=== PATIENT | female | born 1945 | race Caucasian/White ===

== ENCOUNTER → 2021-06-30 | Outpatient (CLI) | payer BC ==
[~2021-06-30] VITALS: Ht 165.1 cm; Wt 68.5 kg
[2021-06-30] VITALS (7 sets, daily range): BP systolic 107–132; BP diastolic 67–80
[~2021-06-30] MED LIST: AMBIEN 10 MG TA10 MG PO; ARIXTRA SC; ASPIRIN325 PO; CARVEDILOL3.125 MG PO; COLACE100 MG PO; COZAAR 50 MG TA50 M2 PO; CRANBERRY400 MG PO; DITROPAN XL10 M1 PO; ENTRESTO 49 MG1 EACH PO; FOSAMAX 70 MG T70 M1 PO; HYDROCODONE-AP1 EA10 PO; K-DUR10 MEQ PO; KEFLEX500 MG PO; LASIX 40 MG TAB40 MG PO; MOBIC15 MG PO; NEURONTIN 300300 M1 PO; OXYIR5 MG PO; PERCOCET 5-3251 EACH PO; PULMICORT FLE180 MCG INH; PULMICORT FLE180 MCG PO; SKELAXIN 800 M800 M1 PO; SLOW RELEASE IRON PO; SPIRONOLACTONE25 M1 PO; STIOLTO RESPIMAT4 GM INH; THERAGRAN-M PR1 EAC1 PO; UNISOM50 MG PO; ZYRTEC10 M2 PO; ZYRTEC10 M5 PO
[2021-06-30 08:30] LABS: HEMATOCRIT 32.2 % (37.0-47.0); HEMOGLOBIN 10.2 gm/dL (12.0-15.0); MCH 23.2 pg (26.0-34.0); MCHC 31.7 g/dL (28.0-37.0); MCV 73.4 fL (80.0-100.0); MPV 8.5 fl. (7.2-11.1); RBC 4.39 mil/uL (4.20-5.00); WBC 6.3 thou/uL (4.0-11.0)
[2021-06-30 08:44] LABS: APTT 26.5 Seconds (25.0-31.3); INR 1.2; PROTIME 12.2 Seconds (9.20-11.50)
[2021-06-30 08:46] LABS: ANION GAP 8 mmol/L (7-16); BUN 27 mg/dL (7-18); CALCIUM 8.4 mg/dL (8.5-10.1); CHLORIDE 96 mmol/L (98-107); CO2 30 mmol/L (21-32); CREATININE 1.3 mg/dL (0.6-1.3); GLUCOSE 93 mg/dL (70-99); POTASSIUM 3.2 mmol/L (3.5-5.1); SODIUM 134 mmol/L (136-145)
[2021-06-30 09:06] LABS: ALBUMIN 3.6 g/dL (3.4-5.0); ALKALINE PHOSPHATASE 74 U/L (46-116); CHOLESTEROL 154 mg/dL (<200); HDL CHOLESTEROL 40 mg/dL (>40); LDL CHOLESTEROL 107 mg/dL (<100); SGOT 25 U/L (15-37); SGPT 20 U/L (30-65); TC:HDL 3.9 Ratio (Not establshd); TOTAL BILIRUBIN 1.5 mg/dL (<0.1-1.0); TOTAL PROTEIN 6.3 g/dL (6.4-8.2); TRIGLYCERIDE 39 mg/dL (<150); VLDL 8 mg/dL (<40)
[2021-06-30 09:48] LABS: SERUM ASSESSMENT CLEAR
--- NOTE | 2021-06-30 10:06 | EKG ---
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
--- NOTE | 2021-06-30 17:10 | CARD ---
[address] [address] CARDIAC CATH REPORT Name: RAYMOND ESQUEDA Room: [facility] IVIS Miguel ÁngelBernie#: [id number] Admission: 06/30/21 Attend Phys: Erich Porter MD, F Discharge: Date of : 49 Report #: [id number] THIS REPORT FOR: cc: Ivan Richter Bradley L. DO Blick, David R. MD [facility] ~ APPROVED REPORT Study performed: 06/30/2021 09:52:13 Patient Details Patient Status: Out-Patient Room #: The patient is a 76 year-old female Event Personnel Dr Porter, Mikhail Turner RN, Levi Magana RTR, Alisha Pedraza RTR Procedures Performed Coronary angiography with LV gram Indication Syncope, Cardiomyopathy Risk Factors Hypercholesterolemia, Diabetes Procedure Narrative The patient was brought electively to the Cardiac Catheterization Laboratory and was prepped and draped in a sterile manner. The right femoral was infiltrated with 2% Lidocaine subcutaneous anesthesia. IV conscious sedation was used throughout procedure with appropriate monitoring and was performed in the presence of a registered nurse who was an independent trained observer other than the physician performing the procedure. A 6Fr Brite Tip sheath was inserted into the right femoral artery. Coronary angiography was performed using coronary diagnostic catheters. The right coronary system was accessed and visualized with a Diagnostic 6Fr JR4 catheter. The left coronary system was accessed and visualized with a Diagnostic 6Fr JL4 catheter. The left ventricle was accessed and visualized with a Diagnostic 6Fr Straight Pigtail catheter. Left ventricular/Aortic Valve gradient assessed via simultaneous left ventricle and right femoral artery pressure. Left ventriculogram was performed in [place] projection. Closure device was deployed with a 6 [place] [address] CARDIAC CATH REPORT Name: RAYMOND ESQUEDA Jesse Room: [facility]#: [id number] Admission: 06/30/21 Attend Phys: Erich Porter MD, F Discharge: Date of : 49 Report #: [id number] tolerated the procedure well and there were no complications associated with the procedure. There was no hematoma. Right radial was attempted and arterial blood was obtained with the percutaneous needle, but was unable to pass the guide wire. Hemostasis was achieved by direct pressure. Intraoperative Conscious Sedation Sedation start time: 1054 Case end Time: 1128 Fentanyl 25.0 mcg Versed 1.0 mg Fluoro Time: 2.5 minutes Dose: DAP 2949.16 cGycm2 334 mGy Contrast Type and Amount: Visipaque 90ml Coronary Angiography The patient's coronary anatomy is right dominant. Diagnostic Cath Left Main 30% ostial stenosis LAD 50% mid stenosis and 90% apical stenosis where the LAD had a very narrow lumen Diagonal 1 small artery with a proximal 70% stenosis Circumflex 80% mid stenosis just after the takeoff of the second marginal artery. Right Coronary 40% proximal stenosis and 30% mid stenosis Left Ventriculography The left ventricle is mild to moderately dilated in size with abnormal contractility. The left ventricular ejection fraction is estimated to be 15-20%. Left ventricular wall motion abnormalities are present. There is 3+ mitral insufficiency. severe global hypokinesis noted Hemodynamics The aortic pressure is 111/67 mmHg with a mean of 117 mmHg. The left ventricular pressure is 139/14 mmHg with a mean of 25 mmHg. The left ventricular end diastolic pressure is 25 mmHg. There was no gradient across the aortic valve upon pullback. Pullback from the left ventricle to the aorta revealed no gradient across the aortic valve. Conclusion 1. 90% stenosis of the very distal apical LAD and 70% proximal stenosis of a [place] [address] CARDIAC CATH REPORT Name: RAYMOND ESQUEDA Jesse Room: [facility]#: [id number] Admission: 06/30/21 Attend Phys: Erich Porter MD, F Discharge: Date of : 49 Report #: [id number] 2. 80% stenosis of the mid circumflex just distal to the takeoff of the second marginal artery. 3. nonischemic cardiomyopathy with EF 15-20% Recommendations 1. consider referal for percutaneious mitral valve clip 2. consider biventricular ICD. <ELECTRONICALLY SIGNED> By: Erich Porter MD, [facility] 06/30/21 1709 170 1709Dapreston Porter MD, [facility] /INF
== END | disposition home or self-care (01) ==
LOC: M.CL 07:14
PROVIDERS: ATTEND Internal Medicine Cardiovascular Disease
DX: I42.9 Cardiomyopathy, unspecified (principal); I25.10 Atherosclerotic heart disease of native coronary artery without angina pectoris; R55 Syncope and collapse; E11.9 Type 2 diabetes mellitus without complications; J45.909 Unspecified asthma, uncomplicated; E78.00 Pure hypercholesterolemia, unspecified; K21.9 Gastro-esophageal reflux disease without esophagitis; Z98.890 Other specified postprocedural states; Z79.899 Other long term (current) drug therapy; Z20.822 Contact with and (suspected) exposure to COVID-19; Z90.710 Acquired absence of both cervix and uterus; Z88.8 Allergy status to other drugs, medicaments and biological substances

== ENCOUNTER → 2021-07-25 | Outpatient (CLI) | payer BC ==
[2021-07-25 12:07] LABS: CALCIUM 8.8 mg/dL (8.5-10.1); POTASSIUM 4.5 mmol/L (3.5-5.1)
== END ==
LOC: M.LAB 11:42
PROVIDERS: ATTEND Nurse Practitioner
DX: E87.6 Hypokalemia (principal)